=== PATIENT | male | born 1985 | race Caucasian/White ===

== ENCOUNTER 2023-01-04 10:53 | Day surgery (SDC) | payer OTHER ==
[~2023-01-04] VITALS: Ht 182.9 cm; Wt 109.7 kg
[~2023-01-04 10:53] MED LIST: NS 1,000 ML IV ONE; TELM1TAB33 PO
[2023-01-04] MEDS ORDERED: propofoL 500 MG/50 ML VIAL As Ordered ONE (12:26)
[2023-01-04] MEDS ORDERED: fentaNYL 100 MCG/2 ML INJECTION As Ordered ONE (12:26)
[2023-01-04] MEDS ORDERED: LIDOCAINE 2% 100MG/5ML SDV (FOR ANES.) As Ordered ONE (12:29)
[2023-01-04 13:42] VITALS: TEMP 98.6
[2023-01-04 14:05] VITALS: BP 155/75; O2SAT 100
== END 2023-01-04 14:17 | disposition home or self-care (01) ==
LOC: M OPP 10:53
PROVIDERS: ATTEND Internal Medicine Gastroenterology
DX: K51.40 Inflammatory polyps of colon without complications (principal); K31.A19 Gastric intestinal metaplasia without dysplasia, unspecified site; K64.0 First degree hemorrhoids; I10 Essential (primary) hypertension; Z79.899 Other long term (current) drug therapy
CPT/HCPCS: 43239; 45385; 88305; J3010